=== PATIENT | female | born 1965 ===

== ENCOUNTER 2023-12-12 11:49 | Emergency (ER) | payer OTHER, SELFPAY ==
[2023-12-12 11:58] VITALS: BP 140/101; BMI 24.2
[2023-12-12 12:34] LABS: % Basophils 0.5 % (0-2); % Eosinophils 0.9 % (0-6); % Immature Granulocytes 0.5 % (0-0.5); % Lymphocytes 32.5 % (20.5-51.1); % Neutrophils 58.6 % (42.2-75.2); Absolute Eosinophils 0.1 10^3/uL (0-0.7); Absolute Lymphocytes 2.9 10^3/uL (1.2-3.4); Absolute Monocytes 0.6 10^3/uL (0.1-0.6); Absolute Neutrophils 5.2 10^3/uL (1.4-6.5); Hemoglobin 14.3 g/dL (12.0-16.0); Mean Corpuscular Volume 85.2 fL (81.0-99.0); Mean Platelet Volume 9.6 fL (7.4-10.4); Nucleated Red Blood Cells % 0 %; Platelet Count 264 10^3/uL (130-400); Red Blood Cell Count 4.93 10^6/uL (4.20-5.40); Red Cell Dist. Width 12.9 % (11.5-14.5); White Blood Cell Count 8.8 10^3/uL (4.8-10.8)
--- NOTE | 2023-12-12 12:53 | ED.GENMED ---
History of Present Illness
General
Chief Complaint: Chest Pain
Source: patient
Exam Limitations: none
Time Seen by Provider: 12/12/23 12:28
Nursing documentation reviewed up to this point in time: agreed with
Travel History
Have you had any contact with someone who has COVID-19?: No
Do you have any symptoms of coronavirus? Fever > 100 degrees, chills, cough, shortness of breath, sore throat, loss of taste or smell, muscle aches, or headache?: No
History of Present Illness
History of Present Illness:
58-year-old female with history of NIDDM, CAD, GERD, cardiac stents 2021, presents stating she has a history of chronic various chest pains followed by GI and recently told she has celiac disease via upper endoscope 10/2023. She states she
frequently is bothered with CP due to GERD and is on Pantoprazole and Dexilant but today's chest pain 'was different.' States woke at 6 a.m. with mid to left chest pain,'like something poking me, irritating.' Took Advil 400 mg 8:30 a.m. with no
relief. No significant caffeine intake.
Went to [facility] at 11 a.m. , they did EKG and gave 4 baby ASA and called EMS as pt pain persisted and she told them her chest felt 'heavy.'
Now pain is there but much improved, feels nauseous. Denies SOB, feeling lightheaded or dizzy, no diaphoresis.
Her next cardiology appt at [facility] is in January.
Past History
Past History
ED Past Medical History: Arrthythmia (Significant PVCs), Asthma, GERD, HTN, Hypercholesterolemia and NIDDM
ED Past Surgical History: Cardiac (Ablation here 06/27/22, cardiac cath with 2 stents [facility] 08/07/22)
Social History
Tobacco: Non-smoker
Alcohol: None
Personal:
Living: with family
Employment: Employed
Review of Systems
Review of Systems
Allergies reviewed?: Yes
All Other Systems: ROS reviewed and negative except as documented in HPI and ROS
Constitutional: Denies fever
Respiratory: Denies trouble breathing
Cardiac: Reports chest pain; Denies diaphoresis or palpitations
ABD/GI: Reports nausea; Denies abdominal pain, vomiting, diarrhea or anorexia
Musculoskeletal: Reports no symptoms
Skin: Reports no symptoms
Neurological: Reports no symptoms
Phy Exam
Physical Exam
Physical Exam:
GENERAL: No acute distress. A&Ox3.
CONSTITUTIONAL: Afebrile.
ENMT: moist mucus membranes, Pharynx nl
RESPIRATORY: Regular respirations, nonlabored, lungs clear.
CARDIOVASCULAR: Regular rate and rhythm, no murmurs, no rubs.
GI: Soft, non tender, nondistended, normal BS
MUSCULOSKELETAL: Moves with ease. Well perfused.
SKIN: Warm, dry, pink
PSYCH: Normal mood and affect. Well kept, interactive and appropriate
NEUROLOGIC: Awake, alert and oriented. No focal neurological deficits
Scores
Heart Score for Chest Pain Patients
STEMI patient?: Not applicable
History: Slightly or Non-Suspicious
ECG: Normal
Age: >45 - <65 years
Risk Factors: >/= 3 Risk Factors or History of CAD
Troponin: </= Normal Limit
Heart Score for Chest Pain Patients: 3
Heart Score Risk: 2.5% MACE over next 6 weeks
Course
Orders/Labs/Results
Orders:
Orders
12/12/23 11:56
EKG [Electrocardiogram (*1)] Urgent
Reason for Study: Chest Pain
12/12/23 11:57
EKG- Treatment ONCE
12/12/23 12:23
Complete Blood Count/With Diff Urgent
Comprehensive Metabolic Panel Urgent
Troponin I Urgent
12/12/23 14:16
Troponin I Urgent
Abnormal Lab Results
12/12/23
12:23
Sodium 134 L mmol/L
(135-145)
Carbon Dioxide 21 L mmol/L
(22-30)
BUN 22 H mg/dl
(7-17)
Glucose 236 H mg/dl
(70-99)
12/12/23 12:23
12/12/23 12:23
Vital Signs
Initial and Last Documented VS:
Initial Vital Signs
Temp Pulse Resp BP Pulse Ox
98.2 F 77 16 140/101 99
12/12/23 11:58 12/12/23 11:58 12/12/23 11:58 12/12/23 11:58 12/12/23 11:58
Last Documented Vital Signs
Temp Pulse Resp BP Pulse Ox
98.2 F 69 18 104/75 97
12/12/23 11:58 12/12/23 15:30 12/12/23 15:30 12/12/23 15:30 12/12/23 15:30
MDM/Problems Addressed
Differential Diagnosis Includes:
GERD, ACS
MDM/Problems Addressed:
58-year-old female with history of NIDDM, CAD, GERD, cardiac stents 2021, presents stating she has a history of chronic various chest pains followed by GI and recently told she has celiac disease via upper endoscope 10/2023. She states she
frequently is bothered with CP due to GERD and is on Pantoprazole and Dexilant but today's chest pain 'was different.' States woke at 6 a.m. with mid to left chest pain,'like something poking me, irritating.' Took Advil 400 mg 8:30 a.m. with no
relief. No significant caffeine intake.
Went to [facility] at 11 a.m. , they did EKG and gave 4 baby ASA and called EMS as pt pain persisted and she told them her chest felt 'heavy.'
Now pain is there but much improved, feels nauseous. Denies SOB, feeling lightheaded or dizzy, no diaphoresis.
Her next cardiology appt at [facility] is in January.
EKG: Sinus rhythm with PVCs
12/12/2023 1323 PM
CBC normal
CMP No clinically significant abnormality
Troponin within normal limits
Blood pressure rechecked: 142/89
Plan: Will check second troponin, if normal will refer her back to her GI doctor. She has a call in to her GI doctor now
Referred to Craft Worker
12/12/2023 1531 PM
Troponin #2 is normal
Rx for Carafate sent to her pharmacy.
She will follow-up with her GI doctor.
*EKG
EKG Intrepretation Date: 12/12/23
Interpretation: abnormal
Comparison EKG: no changes
Rate: normal
Rhythm: sinus and PVC's
[place]: normal axis
Interval: normal interval
QRS Pattern: normal QRS
Ischemia: no ischemia
*Critical Care Note
Total Time (30-74mins, 75-104mins- exclusive of procedures): Not Applicable
ED Attending Note
-
Portions of this chart may have been created with voice recognition software.� Occasional wrong word or��sound alike� substitutions may have occurred due to the inherent limitations of voice recognition software.
Discharge Plan
Departure
Patient Disposition: Home (Routine Discharge)
Date of Disposition: 12/12/23
Time of Disposition: 15:18
Patient with high blood pressure during this ER visit?: No
Condition: Good
Discharge Problem:
Atypical chest pain
Instructions: Chest Pain That Is Not Caused by the Heart (DC), Acid Reflux and GERD in Adults (DC)
Prescriptions:
New
sucralfate [Carafate] 1 gram tablet
1 g PO ACHS Qty: 20 0RF
No Action
montelukast 10 mg Tablet
10 mg PO QPM
lisinopril 2.5 mg Tablet
2.5 mg PO DAILY
Janumet 50-1,000 mg Tablet
1 tab PO BID
naproxen sodium [Aleve] 220 mg Capsule
220 mg PO BIDPRN PRN (Reason: mild pain)
Farxiga 5 mg Tablet
5 mg PO DAILY
Ozempic 0.25 mg or 0.5 mg(2 mg/1.5 mL) Pen Injector
0.25 mg SC VASQUEZ
metoprolol succinate 50 mg Tablet Extended Release 24 Hr
50 mg PO BID
pantoprazole [Protonix] 40 mg Tablet,Delayed Release (Dr/Ec)
40 mg PO BID
ibuprofen [Advil] 200 mg Tablet
400 mg PO Q6H PRN (Reason: mild pain)
Brilinta 90 mg Tablet
90 mg PO BID
ergocalciferol (vitamin D2) [Vitamin D2] 1,250 mcg (50,000 unit) Capsule
1,250 mcg PO Q2W
aspirin 81 mg Tablet,Delayed Release (Dr/Ec)
81 mg PO DAILY
Referrals:
Your, GI doctor [Other] - Next open appointment
Isadora Bowie MD [Family Provider] -
Activity Restrictions/Additional Instructions:
As we discussed, I sent a prescription to your pharmacy for Carafate. Try it and let your GI doctor know if it helps.
Call make an appointment with the research archaeologist to learn more about how to understand and control your diabetes
Interventions
Interventions:
*Risk Screen - Suicide Last Done: 12/12/23 12:00
*General Assessment Last Done: 12/12/23 12:00
*Neglect/Abuse Screening Last Done: 12/12/23 12:00
ED- Fall Risk Assessment Last Done: 12/12/23 12:02
*ED COVID-19 Vaccine History Last Done: 12/12/23 11:58
*Nursing Disposition Last Done: 12/12/23 15:37
ED- Cardiac Assessment Last Done: 12/12/23 12:02
Discharge Date and Time
Discharge Date/Time: 12/12/23 15:37
[2023-12-12 12:56] LABS: Troponin I < 0.012 ng/ml
[2023-12-12 12:59] LABS: ALT (SGPT) 28 U/L (0-35); AST (SGOT) 26 U/L (14-36); Alkaline Phosphatase 98 U/L (38-126); Blood Urea Nitrogen 22 mg/dl (7-17); Calcium 8.9 mg/dl (8.4-10.2); Carbon Dioxide 21 mmol/L (22-30); Chloride 103 mmol/L (98-107); Estimated Creatinine Clearance 78 ml/min; Glucose 236 mg/dl (70-99); Potassium 4.3 mmol/L (3.5-5.1); Sodium 134 mmol/L (135-145); Total Bilirubin 0.4 mg/dl (0.2-1.3); Total Protein 6.4 g/dl (6.3-8.2); eGFR > 60.00
[2023-12-12 15:00] LABS: Troponin I < 0.012 ng/ml
[2023-12-12 15:30] VITALS: BP 104/75
== END 2023-12-12 15:37 | disposition home or self-care (01) ==
LOC: EMR 11:49
PROVIDERS: Emergency Medicine; Registered Nurse; EMERGENCY PHYSICIAN Student in an Organized Health Care Education/Training Program; FAMILY PHYSICIAN Internal Medicine
DX: R07.89 Other chest pain (principal); E11.9 Type 2 diabetes mellitus without complications; I25.10 Atherosclerotic heart disease of native coronary artery without angina pectoris
CPT/HCPCS: 99284; 80053; 84484; 85025; 93005